=== PATIENT | female | born 1995 | race Caucasian/White ===

== ENCOUNTER 2017-05-23 21:52 | Inpatient (IN) ==
[2017-05-23] MEDS ORDERED: BETAMET ACET/BETAMET NA PH 6 MG/1 ML - 5 ML ONE (22:21)
[2017-05-23] MEDS ORDERED: ONDANSETRON 4 MG/2 ML VIAL ONE (22:22)
[2017-05-23] MEDS ORDERED: FAMOTIDINE 20 MG/2 ML VIAL IVP ONE (22:22)
[2017-05-23] MEDS ORDERED: CITRIC ACID/SODIUM CITRATE 30 ML CUP PO ONE (22:22)
[2017-05-23] MEDS ORDERED: Lactated Ringers 2,000 ML PRIMARY IV ONE (22:22)
[2017-05-23] MEDS ORDERED: Metoclopramide Inj 10 MG/2 ML VIAL ONE (22:22)
[2017-05-23] MEDS ORDERED: NORMAL SALINE 10 ML SYRINGE FLUSH IVP PRN (22:24)
[2017-05-23] MEDS ORDERED: LIDOCAINE W/ SODIUM BICARB 0.5 ML SYR SUBD PRN (22:24)
[2017-05-23] MEDS ORDERED: ONDANSETRON 4 MG/2 ML VIAL IVP PRN (22:24)
[2017-05-23] MEDS: Lactated Ringers-OB Dept 1,000 ML PRIMARY IV SCH ×2 (22:30→23:49)
[2017-05-23] MEDS: fentaNYL Inj 100 MCG/2 ML VIAL IVP PRN ×2 (22:42→23:15)
[2017-05-23 22:45] LABS: Hematocrit [HCT] 43.3 % (37.0-47.0); Hemoglobin [HGB] 14.8 g/dL (12.0-16.0); MEAN CORPUSCULAR HEMOGLOBIN 27.7 PG (27-31); MEAN CORPUSCULAR HGB CONC 34.2 g/dL (33-37); MEAN CORPUSCULAR VOLUME 80.9 FL (81-99); MEAN PLATELET VOLUME 11.9 FL (7.4-12.2); RED BLOOD COUNT 5.35 10^6/uL (4.20-5.40)
[2017-05-23] MEDS ORDERED: AMPICILLIN 2 GM VIAL ONE (22:54)
[2017-05-23 23:00] LABS: BLOOD UREA NITROGEN 12 mg/dL (7-22)
[2017-05-23] MEDS ORDERED: MAGNESIUM SULFATE IV ONE ×2 (23:00)
[2017-05-23] MEDS ORDERED: Sodium Chloride 0.9% 100 ML IV ONE (23:09)
[2017-05-23] MEDS ORDERED: D10W 250 ML PRIMARY IV ONE (23:11)
[2017-05-23] MEDS ORDERED: METHYLERGONOVINE MALEATE 0.2 MG/1 ML VIAL IM ONE (23:12)
[2017-05-23] MEDS ORDERED: Oxytocin 20 Units + LR 20 UNIT/1,000 ML BAG IV ONE (23:12)
[2017-05-23] MEDS ORDERED: BETAMET ACET/BETAMET NA PH 6 MG/1 ML - 5 ML IM SCH (23:15)
--- NOTE | 2017-05-23 23:15 | OB.PROGRES ---
Interval History: 21 yo presented this evening to L&D c/o increasing force and frequency of uterine contractions at 33 3/7 weeks EGA. Her had been uncomplicated to date with normal labs and US. She began kaylin this AM around 1000, with increasing intensity after 1500. She was hoping they would subside, but they continued to increase until she presented to L&D a short time ago and was found to be 4 cm dilated. A quick deck sono revealed vertex presentation, after which her cervix had changed to 6 cm with complete effacement. This precludes transfer to tertiary care facility. FHRT is category 1. The patient will be treated with steroids and abx. She requests an epidural. Anesthesia and Peds have been notified. Anticipate with transfer of the . Objective - Labs CBC and BMP: 05/23/17 22:35 05/23/17 22:35
[2017-05-23 23:18] LABS: BILIRUBIN,URINE SMALL (NEG); CLARITY,URINE CLEAR (CLEAR); COLOR,URINE YELLOW (Y); GLUCOSE, URINE (UA) NEGATIVE (NEG); OCCULT BLOOD,URINE NEGATIVE (NEG); PROTEIN,URINE 30 mg/dl (NEG)
[2017-05-23] MEDS ORDERED: ePHEDrine Inj 50 MG/ML AMP ONE (23:18)
[2017-05-23 23:24] LABS: BACTERIA,URINE FEW; RENAL EPITHELIAL CELLS,URINE RARE; SQUAMOUS EPITHELIAL CELL,UR MODERATE; URINE SAMPLE TYPE CLEAN CATCH URINE; WBC,URINE 0-1
[2017-05-23] MEDS ORDERED: LIDOCAINE MPF 2% - 5 ML (20 MG/1 ML) ONE (23:28)
--- NOTE | 2017-05-23 23:38 | CRNA.PROGR ---
Anesthesia Time - - Start date: 05/23/17 - Procedure/Recovery Time Anesthesia : Time In: 23:15 Anesthesia : Time Out: 01:00 - Other Physical Status: P2 () Anesthesia Type: Epidural
[2017-05-23] MEDS ORDERED: BUPivacaine Inj 0.25% PF - 10ml vial ONE (23:42)
--- NOTE | 2017-05-23 23:45 | CRNA.PROGR ---
Anesthesia Note - Progress Notes Anesthesia Progress Note: Placed epidural. Test dose of 4 ml of 1.5% Lido with epi 1:200k. Since pt is reported too be 8 cm- will incrementally dose epidural. 5 ml of 2%Lido via epidural at 2333. 5ml of 2% lido at 2344. 5 ml of 0.25% Bupivicaine via epidural at 0023. Delivered at 0053. Placenta at 0054. Apgars 8 and 8.
--- NOTE | 2017-05-23 23:54 | CRNA.PROCE ---
Central Neuraxis Block [facility] - - Safety Measures: Site Verified - - Type of Block: Epidural (Foor delivery of infant who isgoing to be transfered out.) Reason for Block: Analgesia Moniters Used During Block: SPO2, NIBP Sedation Used - Enter Amount Used in Comment Field: Fentanyl (mcg): Yes (Pt received 100 mcgs fentanyl prior to my arrival) Positioning: Sitting Skin Prep Used: ChloroPrep (Twice) Draped: Yes Skin Infiltration - Enter Amount Used in Comment Field: 1% Xylocaine (mL): Yes ( .75 ml) Spinal Needle Used: 18 Hustead 80 mm (SOMMER with saline, epidural space times once , catheter threaded 3.5 cm, no parasthesia complaints. After 15 minutes pr reports mainly Left sided analgesia, will attempt more volume to spread analgesia.) Local Anesthetic - Enter Amount Used in Comment Field: 1.5 % Xylocaine with Epinephrine 1:200,000 (mL): Yes (4 ml as test dose at 2322.) Number of Centimeters Catheter Threaded: 3.5 Bioclusive Dressing Applied: Yes (skin prep under Tegaderm)
[2017-05-24] MEDS ORDERED: Lactated Ringers 1,000 ML PRIMARY IV ONE (01:06)
[2017-05-24] MEDS ORDERED: ePHEDrine Inj 50 MG/ML AMP ONE (01:06)
--- NOTE | 2017-05-24 01:10 | OB.DEL.SUM ---
Delivery Note Delivery Summary: The patient progressed rapidly through active labor with epidural analgesia to complete dilation and +2 station. Amniotomy was performed at 9 cm dilation with return of clear fluid. She pushed for a short time to of a viable male infant, Apgars 8/8, over an intact perineum. The baby had a lusty cry at , so cord clamping was delayed per current recommendations. The mouth and nose were suctioned. The cord was clamped and cut. The was passed to the nursery nurse. The placenta delivered spontaneously within minutes, intact , with a 3 vessel cord. Good uterine tone was noted with fundal massage. EBL 200 ml. There were no complications at delivery. flight transport is en route.
[2017-05-24] MEDS ORDERED: DIPH,PERTUSS,TET(ADACEL) VAC/PF 0.5 ML (Tdap) IM ONE (01:57)
[2017-05-24] MEDS ORDERED: Ondansetron ODT Tab 4 MG TAB PO PRN (01:57)
[2017-05-24] MEDS ORDERED: ONDANSETRON 4 MG/2 ML VIAL IVP PRN (01:57)
[2017-05-24] MEDS ORDERED: LANOLIN HPA 40 GM TUBE TOPICAL PRN (01:57)
[2017-05-24] MEDS ORDERED: GLYCERIN/WITCH HAZEL 1 BOX TOPICAL PRN (01:57)
[2017-05-24] MEDS ORDERED: NORMAL SALINE 10 ML SYRINGE FLUSH IVP PRN (01:57)
[2017-05-24] MEDS ORDERED: CALCIUM CARBONATE 500 MG (TUMS) CHEWABLE TABLET PO PRN (01:57)
[2017-05-24] MEDS ORDERED: LIDOCAINE HCL 2 % 10 ML JELLY URO-JECT TOPICAL PRN (01:57)
[2017-05-24] MEDS ORDERED: diphenhydrAMINE 25 MG CAPSULE PO PRN (01:57)
[2017-05-24] MEDS ORDERED: Nalbuphine Inj 20 MG/ML Ampule IVP PRN (01:57)
[2017-05-24] MEDS ORDERED: ACETAMINOPHEN 325 MG TABLET PO PRN (01:57)
[2017-05-24] MEDS ORDERED: BENZOCAINE/MENTHOL SPRAY 56 GM BOTTLE TOPICAL PRN (01:57)
[2017-05-24] MEDS ORDERED: Oxytocin 20 Units + LR 20 UNIT/1,000 ML BAG IV SCH (01:57)
[2017-05-24] MEDS ORDERED: IBUPROFEN 800 MG TABLET PO PRN (01:57)
[2017-05-24] MEDS ORDERED: diphenhydrAMINE 50 MG/1 ML VIAL IVP PRN (01:57)
[2017-05-24 06:33] LABS: AMPHETAMINE SCREEN NEGATIVE (NEG); CANNABINOID SCREEN,URINE NEGATIVE (NEG); COCAINE SCREEN NEGATIVE (NEG); METHADONE URINE SCREEN NEGATIVE (NEG); METHAMPHETAMINES SCREEN,URINE NEGATIVE (NEG); OPIATE SCREEN,URINE NEGATIVE (NEG); TRICYCLIC ANTIDEPRESSANT,URINE NEGATIVE (NEG); URINE SAMPLE TYPE CLEAN CATCH URINE; URINE SPECIFIC GRAVITY - MAN 1.025
--- NOTE | 2017-05-24 08:55 | DCSUMMARY ---
Hospitalization Summary Admit Date: 05/23/17 Discharge Date: 05/24/17 Primary Diagnosis:: Labor at 33 weeks Delivery Type: Vaginal Hospital Course: Uncomplicated labor, delivery, and course. Discharged to home on day of delivery so she can go to [place] to be with her baby. / Postop Complications: None [place] Complications: Transfer to [place] for NICU care. Exam - Vitals Vital Signs: Vital Signs Temperature 97.6 F Temperature Source Temporal Artery Scan Pulse Rate [Pulse Oximeter] 83 Pulse Rate 67 Respiratory Rate 18 Blood Pressure [Left Arm] 121/80 Blood Pressure 116/81 Pulse Ox 95 Oxygen Delivery Method Room Air Height 5 ft 6 in Weight 154 lb 4.8 oz
[2017-05-24] MEDS ORDERED: Prenatal Multivitamin Tab 1 TAB TAB PO SCH (09:00)
[2017-05-24 09:58] VITALS: BP 121/86; RESP 16; TEMP 97.4; O2SAT 96
[2017-05-25] MEDS ORDERED: Prenatal Multivitamin Tab 1 TAB TAB PO SCH (09:00)
== END 2017-05-24 10:52 | disposition home or self-care (01) | DRG 775 ==
LOC: OBOP 21:52 → OBIP 23:06
PROVIDERS: ADMIT Obstetrics & Gynecology; ATTEND Obstetrics & Gynecology